=== PATIENT | male | born 1980 | race Caucasian/White ===

== ENCOUNTER 2018-10-28 09:52 | Emergency (ER) | payer OTHER ==
[~2018-10-28] VITALS: Ht 203.2 cm; Wt 118.9 kg
[~2018-10-28 09:52] MED LIST: HYDR-4011 PO; NAPR-985 PO
[2018-10-28 09:59] VITALS: BP 162/77; PULSE 99; RESP 18; Ht 203.2 cm; Wt 118.9 kg
[2018-10-28] MEDS ORDERED: KETOROLAC 60 MG INJ IM STA (10:49)
[2018-10-28] MEDS ORDERED: HYDR-4011 PO (10:58)
[2018-10-28] MEDS ORDERED: HYDROCODONE/APAP (5/325) TAB PO ONE (11:30)
--- NOTE | 2018-10-28 11:56 | ERD ---
ER Documentation Chief Complaint Chief Complaint lt foot pain , fx , waiting on ortho , needs pain meds HPI 37-year-old male presenting to the emergency department for recheck of his left foot. He was seen here approximately 6 days ago and was diagnosed with a left calcaneal fracture. He reports ongoing pain which is rated 8/10 in severity and constant. He has been taking naproxen and [place] for pain. He states he has ran out of Mon[place]. He is waiting for referral to see an orthopedic physician. He does have a posterior ankle splint in place to the left lower extremity. He denies any numbness or tingling or loss of sensation or function in the toes of the left lower extremity. ROS All systems reviewed and are negative except as per history of present illness. Medications Home Meds Active Scripts Hydrocodone/Acetaminophen (Monmouth 5-325 Tablet) 1 Each Tablet, 1 TAB PO Q6H PRN for PAIN, #10 TAB Prov:HUBERT DIAZ PA-C 10/28/18 Naproxen* (Naprosyn*) 500 Mg Tablet, 500 MG PO BID PRN for PAIN AND/OR INFLAMMATION, #30 TAB Prov:WINSOME DUONG PA-C 10/22/18 Hydrocodone/Acetaminophen ([place] 5-325 Tablet) 1 Each Tablet, 1 EACH PO DAILY, #5 TAB Prov:WINSOME DUOGN PA-C 10/22/18 Allergies Allergies: Coded Allergies: No Known Allergy (Unverified , 10/22/18) PMhx/Soc History of Surgery: Yes (left knee sx x3, appendectomy) Hx Alcohol Use: No Hx Substance Use: No Hx Tobacco Use: Yes Smoking Status: Current every day smoker FmHx Family History: No diabetes Physical Exam Vitals Vital Signs Date Temp Pulse Resp B/P (MAP) Pulse Ox O2 O2 Flow FiO2 Time Delivery Rate 10/28/18 98.1 99 18 162/77 98 09:59 (105) Physical Exam Const: No acute distress Head: Atraumatic Eyes: Normal Conjunctiva ENT: Normal External Ears, Nose and Mouth. Neck: Full range of motion. No meningismus. Resp: No respiratory distress. Skin: No petechiae or rashes Back: No midline or flank tenderness Ext: Posterior ankle splint in place with good fit to the left lower extremity. Patient is neurovascularly intact to all toes of the left lower extremity. Neur: Awake and alert Psych: Normal Mood and Affect Results 24 hrs Current Medications Medications Dose Sig/Marcellus Start Time Status Last (Trade) Ordered Route PRN Stop Time Admin Dose Reason Admin Ketorolac 60 mg ONCE STAT 10/28/18 DC Tromethamine IM 10:49 (Toradol) 10/28/18 11:02 1 tab ONCE ONCE 10/28/18 DC 10/28/18 Acetaminophen PO 11:30 11:06 / 10/28/18 11:30 Hydrocodone Bitart ([place] (5/325)) Procedures/MDM 37-year-old male presenting to the emergency department complaining of ongoing pain to the left foot. Patient was seen here approximately 6 days ago and diagnosed with a calcaneal fracture. Patient has had no new trauma. Splint appears to be in place with good fit. I will refill 10 pills of Monmouth for the patient. The patient's CURES report was consulted and there was no evidence to suggest drug-seeking behavior. I did review the patient's records and x-ray results which was consistent with his story. There is no evidence of compartment syndrome or other emergencies. Patient stable and appropriate for discharge with 24-48-hour follow-up with orthopedic physician. He was given resources to do so. Patient agreed with the diagnosis, plan, need for follow- up, return precautions. Patient's blood pressure was elevated (>120/80) but appears stable without evidence of hypertension emergency or urgency. The patient is to follow-up and pursue outpatient monitoring and therapy with their primary care physician within 1 week and return immediately if they have any new, worsening, or concerning symptoms. Disclaimer: Inadvertent spelling and grammatical errors are likely due to EHR/di ctation software use and do not reflect on the overall quality of patient care. Also, please note that the electronic time recorded on this note does not necessarily reflect the actual time of the patient encounter. Departure Diagnosis: Primary Impression: Left calcaneal fracture Encounter type: subsequent encounter Calcaneus location: unspecified portion of calcaneus Fracture type: closed Fracture alignment: nondisplaced Fracture healing: with routine healing Qualified Codes: S92.002D - Unspecified fracture of left calcaneus, subsequent encounter for fracture with routine healing Condition: Fair Patient Instructions: Fracture, Foot Referrals: [facility] 7 a.m.- 11 p.m. Every Day of the Week NO APPOINTMENT OR AUTHORIZATION NEEDED SO [facility] Hours: Mon-Fri 9:00 AM - 5:00 PM Additional Instructions: SPECIALIST: YOU HAVE A MEDICAL CONDITION WHICH REQUIRES YOU TO SEE A SPECIALIST WITHIN THE NEXT 1-2 DAYS. PLEASE FOLLOW UP WITH YOUR PRIMARY PHYSICIAN FOR REFFERAL.IF YOU DO NOT HAVE A PRIMARY CARE PHYSICIAN AND/OR YOU CAN NOT AFFORD TO SEE A PHYSICIAN THE FOLLOWING RESOURCES HAVE BEEN SUPPLIED TO YOU. IT IS YOUR RESPONSIBILITY TO BE SEEN BY THE SPECIALIST: ORTHOPED[facility] HUBERT DIAZ PA-C Oct 28, 2018 11:56
== END 2018-10-28 11:08 | disposition home or self-care (01) ==
LOC: FTE 09:52
DX: S92.002D Unspecified fracture of left calcaneus, subsequent encounter for fracture with routine healing (principal); F17.210 Nicotine dependence, cigarettes, uncomplicated; X58.XXXD Exposure to other specified factors, subsequent encounter
CPT/HCPCS: Z7502; Z7610; 99283; J1885